=== PATIENT | female | born 1980 | race Two or more races ===

== ENCOUNTER 2017-07-08 07:05 | Emergency (ER) | payer BC ==
[2017-07-08 07:48] LABS: CALCIUM 8.7 mg/dL (8.5-10.1); CARBON DIOXIDE 26.7 mmol/L (21-32); CHLORIDE SERUM 105 mmol/L (98-107); GFR1 > 60 mL/min; GLUCOSE SERUM 115 mg/dL (74-106); SODIUM SERUM 136 mmol/L (136-145)
[2017-07-08 07:54] LABS: ALBUMIN 3.7 g/dL (3.4-5.0); ALKALINE PHOSPHATASE 56 U/L (46-116); ALT/SGPT 42 U/L (14-59); AST/SGOT 17 U/L (15-37); BILIRUBIN TOTAL 0.3 mg/dL (0.20-1.00); CHOLESTEROL 194 mg/dL (<200); HDL CHOLESTEROL 37 mg/dL (40-60); PHOSPHOROUS 2.9 mg/dL (2.5-4.9); TOTAL PROTEIN, SERUM 7.6 g/dL (6.4-8.2); URIC ACID 4.5 mg/dL (2.6-6.0)
[2017-07-08 08:03] LABS: BASOPHIL % 0.5 % (0-2); PLATELET COUNT 305 x10^3mcL (130-400); RED CELL DISTRIBUTION WIDTH 13.7 % (11.5-14.5)
[2017-07-08 09:41] VITALS: BP 128/95
== END 2017-07-08 09:41 | disposition home or self-care (01) ==
LOC: ED 07:05
PROVIDERS: Emergency Medicine
DX: F45.8 Other somatoform disorders (principal); F41.9 Anxiety disorder, unspecified
CPT/HCPCS: 36415; 83880; Q0092